=== PATIENT | female | born 1965 | race Hispanic/Latino ===

== ENCOUNTER → 2023-09-17 10:16 | Outpatient (REF) | payer BC, SELFPAY ==
[2023-09-17 11:21] LABS: % Basophils 0.7 % (0-2); % Eosinophils 1.1 % (0-6); % Immature Granulocytes 0.4 % (0-0.5); % Lymphocytes 31.5 % (20.5-51.1); % Monocytes 7.7 % (1.7-9.3); % Neutrophils 58.6 % (42.2-75.2); Absolute Basophils 0.1 10^3/uL (0-0.2); Absolute Eosinophils 0.1 10^3/uL (0-0.7); Absolute Lymphocytes 2.3 10^3/uL (1.2-3.4); Absolute Monocytes 0.6 10^3/uL (0.1-0.6); Absolute Neutrophils 4.2 10^3/uL (1.4-6.5); Hematocrit 41.5 % (37.0-47.0); Hemoglobin 14.4 g/dL (12.0-16.0); Mean Corp Hgb Conc. 34.7 g/dL (33.0-37.0); Mean Corpuscular Hgb 30.3 pg (27.0-31.0); Mean Corpuscular Volume 87.2 fL (81.0-99.0); Mean Platelet Volume 10.3 fL (7.4-10.4); Nucleated Red Blood Cells % 0 %; Platelet Count 213 10^3/uL (130-400); Red Blood Cell Count 4.76 10^6/uL (4.20-5.40); Red Cell Dist. Width 12.7 % (11.5-14.5); White Blood Cell Count 7.2 10^3/uL (4.8-10.8)
[2023-09-17 11:56] LABS: ALT (SGPT) 26 U/L (0-35); AST (SGOT) 30 U/L (14-36); Albumin 4.6 g/dl (3.5-5.0); Alkaline Phosphatase 86 U/L (38-126); Blood Urea Nitrogen 25 mg/dl (7-17); Calcium 9.7 mg/dl (8.4-10.2); Carbon Dioxide 31 mmol/L (22-30); Chloride 104 mmol/L (98-107); Glucose 103 mg/dl (70-99); HDL Cholesterol 64 mg/dl; LDL Cholesterol, Calculated 126 mg/dl; Potassium 4.9 mmol/L (3.5-5.1); Sodium 140 mmol/L (135-145); Total Bilirubin 0.6 mg/dl (0.2-1.3); Total Cholesterol 217 mg/dl (50-199); Triglyceride 138 mg/dl (10-149); Very Low Density Lipoprotein 27 mg/dl (0-30); eGFR > 60.00
[2023-09-17 14:10] LABS: TSH 1.06 uIU/ml (0.47-4.68)
== END ==
LOC: REG 10:16
PROVIDERS: ATTENDING PHYSICIAN Internal Medicine; FAMILY PHYSICIAN Internal Medicine
DX: I42.2 Other hypertrophic cardiomyopathy (principal); M54.16 Radiculopathy, lumbar region; E66.9 Obesity, unspecified; G47.33 Obstructive sleep apnea (adult) (pediatric)
CPT/HCPCS: 36415; 80053; 80061; 84443; 85025

== ENCOUNTER → 2023-09-18 14:10 | Outpatient (REF) | payer BC, SELFPAY | LOC: WDC 14:10 | PROVIDERS: ATTENDING PHYSICIAN Internal Medicine; FAMILY PHYSICIAN Internal Medicine | DX: Z12.31 Encounter for screening mammogram for malignant neoplasm of breast (principal) | CPT/HCPCS: 77063; 77067 ==

== ENCOUNTER 2024-04-12 03:23 | Inpatient (IN) | payer OTHER, SELFPAY ==
[2024-04-11 21:13] VITALS: BMI 37.8
[2024-04-11 21:19] VITALS: BP 145/79
[2024-04-11 21:26] VITALS: BP 143/72
--- NOTE | 2024-04-11 21:55 | ED.GENMED ---
History of Present Illness
General
Chief Complaint: Chest Pain
Source: patient and family
Time Seen by Provider: 04/11/24 21:45
History of Present Illness
History of Present Illness:
This patient is a 59-year-old female who states that she was eating dinner tonight and got the gradual onset of pain in both her arms radiating across the front of her chest which persists. The pain is constant without exacerbating relieving
factors with the exception of walking, which seems to make it better. It is not pleuritic. She denies associated back pain, headache, dizziness, nausea, vomiting, diaphoresis, dyspnea, fever, chills. She does note mild discomfort in the neck jaw
area. Patient has a history of hypertrophic cardiomyopathy, no known history of coronary disease. Patient denies other complaints
Past History
Past History
ED Past Medical History: GERD and Other (Hypertrophic cardiomyopathy, sleep apnea)
ED Past Surgical History: and Orthopedic (Bilateral carpal tunnel release)
Social History
Tobacco: Non-smoker
Alcohol: None
Drug: None
Personal:
Living: with family
Employment: Employed
Family History
Family History: Other (Noncontributory)
Phy Exam
Physical Exam
Physical Exam:
GENERAL: Alert , in no apparent distress
EYE: pupils equal and reactive
NECK: Supple, no significant adenopathy.
ENT: o/p clr, mmm.
CARDIAC: Regular rate and rhythm, systolic murmur noted.
LUNGS: Clear breath sounds bilaterally, no acute respiratory distress, no wheezes/rales/rhonchi
ABDOMEN: Soft, without focal tenderness, no r/g, no cvat
NEUROLOGICAL: Alert and oriented, no focal neuro deficits
SKIN: Warm and dry, skin intact.
MUSCULOSKELETAL: No edema, well perfused.
PSYCH: Normal and appropriate interaction.
Course
Orders/Labs/Results
Orders:
Orders
04/11/24 21:14
Electrocardiogram (*1) Urgent
Reason for Study: Chest Pain
EKG- Treatment ONCE
04/11/24 21:41
CBC/With Diff [Complete Blood Count/With Diff] Urgent
CMP [Comprehensive Metabolic Panel] Urgent
04/11/24 21:53
Aspirin 325 mg PO NOW STA
04/11/24 22:22
Morphine Sulfate 2 mg .ROUTE .STK-MED ONE
Morphine Sulfate 2 mg IV NOW STA
04/11/24 22:26
Troponin I Urgent
04/12/24 01:33
Troponin I Urgent
Abnormal Lab Results
04/11/24 04/12/24
21:41 01:33
Absolute Monos (auto) 0.7 H 10^3/uL
(0.1-0.6)
BUN 26 H mg/dl
(7-17)
Creatinine 1.1 H mg/dL
(0.6-1.0)
Glucose 101 H mg/dl
(70-99)
Troponin I 0.095 H* D ng/ml
04/11/24 21:41
04/11/24 21:41
Vital Signs
Initial and Last Documented VS:
Initial Vital Signs
Temp Pulse Resp BP Pulse Ox
97.6 F 109 16 145/79 98
04/11/24 21:19 04/11/24 21:19 04/11/24 21:19 04/11/24 21:19 04/11/24 21:19
Last Documented Vital Signs
Temp Pulse Resp BP Pulse Ox
97.6 F 66 17 93/57 96
04/11/24 21:19 04/12/24 01:30 04/12/24 01:30 04/12/24 01:00 04/12/24 01:30
Update Note
Update Note:
Patient presents to the Emergency Department with ____chest and arm pain
Number and Complexity of Problems Addressed at the Encounter
� Chronic conditions affecting care:
� Acute Exacerbation and/or Progression of Chronic Illness:
� Differential Diagnosis includes: But not limited to ACS, pleurisy, anxiety, musculoskeletal, etc. etc.
Amount and/or Complexity of Data to be Reviewed and Analyzed
� I performed an independent evaluation of and my interpretation is:
EKG:read by me, sinus tachycardia, lvh, lae, st depr (mild)
CT:
Xrays:
Laboratory Studies:mild renal insufficiency, trop initial nl
Other:
� Review of other/old records reveals: Prior admissions to the hospital for colitis. She also had a recorder placed. Echo from August 2020 shows LVH with EF of 70%
� Clinical information was obtained by an independent historian:
� Prescriptions/Medications Considered but not given:
� Further testing considered but not performed:
Risk of Complications and/or Morbidity or Mortality of Patient Management
� Social determinants of health affecting care:
� Discussion with other providers (PCP, Hospitalists, Consultants, etc):
� Escalation of care including admission/observation vs risk of discharge considered:1140 pm Pt resting comfortably, pain free. Pt updated regarding plan, repeat trop. No complnts.
220 AM Repeat troponin with abnormal elevation. pt pain free/sleeping. will admit. Already received asa, will add heparin gtt and d/w dr Bryant.
Of note, pain not persistent, sudden, ripping/tearing, radiating to back etc to suggest dissection
ED Attending Note
-
Portions of this chart may have been created with voice recognition software.� Occasional wrong word or��sound alike� substitutions may have occurred due to the inherent limitations of voice recognition software.
Discharge Plan
Departure
Patient Disposition: Admit
Date of Disposition: 04/12/24
Time of Disposition: 02:
Admit to doctor: neda
Presentation/result/management discussed w/ accepting MD/DO: Hospitalist
Condition: Good
Discharge Problem:
Chest pain
Prescriptions:
No Action
Ozempic 2 mg/dose (8 mg/3 mL) Pen Injector
2 mg SC OWUSU
lidocaine 5 % adhesive patch,medicated
1 patch topical DAILY
diltiazem HCl 180 mg capsule,extended release 24hr
180 mg PO DAILY
pantoprazole 40 mg Tablet,Delayed Release (Dr/Ec)
40 mg PO BID Qty: 60 0RF
sucralfate 100 mg/mL Suspension
1 g PO ACHS Qty: 200 0RF
amoxicillin-pot clavulanate 500-125 mg tablet
1 tab PO Q12H Qty: 10 0RF
Referrals:
Mike Nguyen MD [Family Provider] -
Interventions
Interventions:
*Risk Screen - Suicide Last Done: 04/11/24 21:19
*General Assessment Last Done: 04/11/24 21:19
*Neglect/Abuse Screening Last Done: 04/11/24 21:19
ED- Fall Risk Assessment Last Done: 04/11/24 22:18
ED- Cardiac Assessment Last Done: 04/11/24 22:18
Discharge Date and Time
Print Language: WELSH
[2024-04-11 21:58] LABS: % Basophils 0.4 % (0-2); % Immature Granulocytes 0.4 % (0-0.5); % Lymphocytes 33.6 % (20.5-51.1); % Monocytes 8.8 % (1.7-9.3); % Neutrophils 55.8 % (42.2-75.2); Absolute Eosinophils 0.1 10^3/uL (0-0.7); Absolute Lymphocytes 2.6 10^3/uL (1.2-3.4); Absolute Monocytes 0.7 10^3/uL (0.1-0.6); Absolute Neutrophils 4.3 10^3/uL (1.4-6.5); Hematocrit 40.3 % (37.0-47.0); Hemoglobin 13.8 g/dL (12.0-16.0); Mean Corp Hgb Conc. 34.2 g/dL (33.0-37.0); Mean Corpuscular Hgb 30.3 pg (27.0-31.0); Mean Corpuscular Volume 88.6 fL (81.0-99.0); Mean Platelet Volume 10.1 fL (7.4-10.4); Nucleated Red Blood Cells % 0 %; Platelet Count 191 10^3/uL (130-400); Red Blood Cell Count 4.55 10^6/uL (4.20-5.40); Red Cell Dist. Width 12.3 % (11.5-14.5); White Blood Cell Count 7.8 10^3/uL (4.8-10.8)
[2024-04-11 22:00] VITALS: BP 138/70
[2024-04-11] MEDS: ASPIRIN 325 MG PO (22:03)
[2024-04-11 22:12] LABS: ALT (SGPT) 24 U/L (0-35); AST (SGOT) 28 U/L (14-36); Alkaline Phosphatase 77 U/L (38-126); Blood Urea Nitrogen 26 mg/dl (7-17); Carbon Dioxide 28 mmol/L (22-30); Chloride 104 mmol/L (98-107); Estimated Creatinine Clearance 56 ml/min; Glucose 101 mg/dl (70-99); Potassium 4.2 mmol/L (3.5-5.1); Sodium 137 mmol/L (135-145); Total Bilirubin 0.7 mg/dl (0.2-1.3); Total Protein 6.5 g/dl (6.3-8.2); eGFR 57.52
[2024-04-11] MEDS: MORPHINE SULFATE 2 MG IV (22:22)
[2024-04-11 22:56] LABS: Troponin I < 0.012 ng/ml
[2024-04-11 23:00] VITALS: BP 110/60
[2024-04-12] VITALS (9 sets, daily range): BP systolic 93–137; BP diastolic 57–81; BMI 36.6
[2024-04-12 02:17] LABS: Troponin I 0.095 ng/ml
[2024-04-12] MEDS: HEPARIN 4000 UNITS IV (02:49)
[2024-04-12] MEDS: HEPARIN 25000 UNITS/250 ML IV (02:50)
[2024-04-12 02:55] LABS: APTT 30.5 Sec (23.4-35.0)
--- NOTE | 2024-04-12 03:16 | HPS.HSE ---
Family Physician
-
Family Physician: Mike Nguyen
Chief Complaint
-
Chest pain
History of Present Illness
Patient is a 59y F with PMH significant for HOCM, hypertension and obesity who presents to ED complaining of chest pain. Patient states that she developed symptoms this evening around 6 PM. She describes heaviness and tightness in both arms,
across the upper chest and into her neck and upper back. She denies any associated N/V, SOB, etc. Patient went to lie down, but her symptoms only increased in intensity. Around 9:30 PM she presented to the ED for further evaluation.
In the ED she received morphine and her symptoms improved.
Patient states that she is currently pain free. Patient denies any similar episodes in the past.
She does report recent episodes of chest heaviness which she notes occurs on days when she fails to take her diltiazem. This has been ongoing since January.
Patient is followed at [facility] by Dr. Turner for hypertrophic cardiomyopathy.
Medical History
Past Medical History
Past Medical History: Reports Other
Additional Past Medical History:
Hypertrophic Cardiomyopathy
Hypertension
Obesity
AMBER
Cervical DDD
Past Surgical History: Reports Other
Additional Past Surgical History:
Cervical Surgery
Right ACL Repair
LINQ
Social History
Tobacco: Non-smoker
Alcohol: None
Drug: None
Family History
Family History: Not pertinent
Allergies / Home Medications
Allergies reflects when Allergies were last updated in [employer].
Home Medications with original date entered in [employer]
Allergy/Medication List:
Allergies
Allergy/AdvReac Type Severity Reaction Status Date / Time
No Known Allergies Allergy Verified 09/06/22 19:21
Home Medications
diltiazem HCl 180 mg capsule,extended release 24 hr 120 mg PO DAILY Blood Pressure 09/07/22
meloxicam 15 mg tablet 15 mg PO DAILY 04/12/24
Review of Systems
-
History Source: Patient
A 12 point ROS was completed and negative except as noted: Yes
Constitutional: Denies Fever or Chills
EENT: Denies Sore Throat
Respiratory: Denies Cough or Trouble Breathing
Cardiac: Reports Chest Pain; Denies Diaphoresis, Palpitations or Syncope
Abdomen/GI: Denies Abdominal Pain, Nausea, Vomiting or Diarrhea
: Denies Dysuria, Frequency or Flank Pain
Musculoskeletal: Denies Joint Pain or Edema
Neurological: Denies Dizzy or Headache
Psych: Reports Anxiety; Denies Depression
Physical Exam
Vital Signs
Vital Signs
Temp Pulse Resp BP Pulse Ox
97.6 F 70 13 114/62 98
04/11/24 21:19 04/12/24 03:00 04/12/24 03:00 04/12/24 02:23 04/12/24 02:30
Physical Exam
General: Other (59y F in no acute distress.)
HEENT: Moist mucous membranes and PERRLA
Respiratory: Clear; No Wheezes, Rales or Rhonchi
Cardiac: S1/S2, Regular Rhythm and Murmur (II/ SJ)
GI: Soft, Non Tender, Non Distended and Normal Bowel Sounds
Musculoskeletal: No Clubbing, No Cyanosis and No Edema
Neuro: AO x 3
Laboratory Results
-
04/11/24 21:41
04/11/24 21:41
Laboratory Results
APTT 30.5 Sec (23.4-35.0) 04/12/24 02:23
Total Bilirubin 0.7 mg/dl (0.2-1.3) 04/11/24 21:41
AST 28 U/L (14-36) 04/11/24 21:41
ALT 24 U/L (0-35) 04/11/24 21:41
Alkaline Phosphatase 77 U/L (38-126) 04/11/24 21:41
Troponin I 0.095 ng/ml H* D 04/12/24 01:33
Impression/Plan
-
A/P: Patient is a 59y F with PMH significant for HOCM, hypertension and obesity who presents to ED complaining of chest pain.
NSTEMI
Hypertrophic Cardiomyopathy
- Admit to IVU for further evaluation and treatment.
- Patient presents with chest pain, troponin elevated on second set (undetectable to 0.095) and abnormal EKG.
- Nonspecific ST-T changes inferiorly and T inversions / minimal ST depressions V4-V6. Both new compared to prior tracings.
- Currently pain-free in the ED.
- IV heparin, daily ASA.
- Follow troponin to peak. Monitor for any new / recurrent chest discomfort.
- Cardiology evaluation for additional recommendations / possible ischemic evaluation.
- Update Echo given HOCM.
- Continue diltiazem.
Obesity due to excess calories
AMBER not on CPAP
- Affects all aspects of care including CV risks.
- Encourage healthy diet and increased activity with goal of weight loss.
- Would encourage PAP usage - would likely need updated PSG / Pulm follow-up to arrange.
DVT Prophylaxis: On IV Heparin
Code Status: Full
[2024-04-12] MEDS: TYLENOL 650 MG PO ×4 (05:46→22:08)
--- NOTE | 2024-04-12 05:50 | PTCARENOTE ---
Pt received as admit from ED. Pt placed on tele monitor reading SR in 60s-70s. Heparin gtt currently infusing at 1000units/hr, no complaints of chest or arm pain. Pt does have complaints of slight headache, Tylenol administered per orders, see
MAR. Admission assessment completed and pt oriented to room. Ambulating independently in room without difficulty. Can make needs known. Call barnes within reach.
[2024-04-12 05:53] LABS: Mean Corp Hgb Conc. 35.9 g/dL (33.0-37.0); Mean Corpuscular Hgb 31.2 pg (27.0-31.0); Mean Corpuscular Volume 86.9 fL (81.0-99.0); Mean Platelet Volume 10.4 fL (7.4-10.4); Platelet Count 187 10^3/uL (130-400); Red Blood Cell Count 4.49 10^6/uL (4.20-5.40); Red Cell Dist. Width 12.2 % (11.5-14.5); White Blood Cell Count 6.9 10^3/uL (4.8-10.8)
[2024-04-12 06:10] LABS: Troponin I 0.191 ng/ml
[2024-04-12 06:29] LABS: Blood Urea Nitrogen 26 mg/dl (7-17); Calcium 8.9 mg/dl (8.4-10.2); Carbon Dioxide 24 mmol/L (22-30); Chloride 104 mmol/L (98-107); Estimated Creatinine Clearance 86 ml/min; Glucose 96 mg/dl (70-99); HDL Cholesterol 56 mg/dl; Potassium 4.3 mmol/L (3.5-5.1); Sodium 136 mmol/L (135-145); Total Cholesterol 210 mg/dl (50-199); eGFR > 60.00
[2024-04-12 06:36] LABS: LDL Cholesterol, Calculated 143 mg/dl; Triglyceride 55 mg/dl (10-149); Very Low Density Lipoprotein 11 mg/dl (0-30)
--- NOTE | 2024-04-12 07:42 | W.PN.HOSP.TC ---
Today's Communication/Plan
-
F/U further cardiology recommendations
Assessment / Plan
Assessment / Plan
Patient is a 59y F with PMH significant for HOCM, hypertension and obesity who presents to ED complaining of chest pain, admitted for NSTEMI.
NSTEMI
Hypertrophic Cardiomyopathy
- Admitted to IVU for further evaluation and treatment.
- Patient presents with chest pain, troponin elevated on second set and abnormal EKG.
- Nonspecific ST-T changes inferiorly and T inversions / minimal ST depressions V4-V6. Both new compared to prior tracings.
- Currently pain-free
- IV heparin, daily ASA.
- Follow troponin to peak. Monitor for any new / recurrent chest discomfort.
- Cardiology evaluation for additional recommendations / possible ischemic evaluation.
- Update Echo
- Continue diltiazem.
Obesity due to excess calories
AMBER not on CPAP
- Affects all aspects of care including CV risks.
- Encourage healthy diet and increased activity with goal of weight loss.
- Would encourage PAP usage - would likely need updated PSG / Pulm follow-up to arrange.
DVT Prophylaxis: On IV Heparin
Code Status: Full
Anticipated Discharge: 24 - 48 hours
Subjective/Interval History
-
Date of Service: April 12, 2024
no current chest pain
awoken from sleep
Objective Data
-
Labs:
Laboratory Results
04/11/24 04/12/24 04/12/24
21:41 02:23 05:35
WBC 7.8 6.9
Hgb 13.8 14.0
Hct 40.3 39.0
Plt Count 191 187
APTT 30.5
Sodium 137
Potassium 4.2
Chloride 104
Carbon Dioxide 28
BUN 26 H
Creatinine 1.1 H
Glucose 101 H
Calcium 9.0
Total Bilirubin 0.7
AST 28
ALT 24
Alkaline Phosphatase 77
04/12/24 04/12/24
05:36 09:00
WBC
Hgb
Hct
Plt Count
APTT Pending
Sodium 136
Potassium 4.3
Chloride 104
Carbon Dioxide 24
BUN 26 H
Creatinine 0.7
Glucose 96
Calcium 8.9
Total Bilirubin
AST
ALT
Alkaline Phosphatase
Vital Signs:
Vital Signs
Temp Pulse Resp BP Pulse Ox
97.9 F 68 16 137/72 98
04/12/24 05:29 04/12/24 05:12 04/12/24 05:29 04/12/24 05:12 04/12/24 05:29
Review of Systems
-
History Source: Patient
All other systems: Reviewed and negative
Physical Exam
-
General: Well Developed, Well Nourished and No Apparent Distress
HEENT: Normocephalic and Atraumatic
Respiratory: Clear to Auscultation; Negative Wheezes or Rhonchi
Cardiac: Regular Rhythm and S1/S2; Negative Murmur
GI: Soft, Nontender, Nondistended and Normal Bowel Sounds
Musculoskeletal: No Clubbing, No Cyanosis and No Edema
Neuro: Awake and Alert
Psych: Calm
Data Reviewed
-
Diagnostic Radiology: Report Reviewed by me
Labs: Labs Reviewed by me
--- NOTE | 2024-04-12 07:43 | CON.CAR ---
Addendum entered and electronically signed by Damien Danielle MD 04/12/24 14:39:
I saw and examined the patient.
The GAMING WORKER's note was reviewed and I agree with the note.
Comment: 59-year-old female (formerly followed by Dr. Dorantes, now following with Dr. Turner), with hypertrophic cardiomyopathy, syncope, prediabetes, AMBER, and obesity who presented to the emergency department with a chief complaint of chest pain.
It is concerning for NSTEMI
- heparin gtt
- aspirin update echo start statin
- cath sunday
Original Note:
Consultation
Consultation Request
Date/Time Consultation Requested: 04/12/2024 05:15
Date/Time Consultation Performed: 04/12/2024 07:45
Requesting Provider: Dr. Bryant
Performing Provider: ULI Beltre for Dr. Danielle
Reason for Consultation: NSTEMI
Medical History
-
Chief Complaint: Chest pain
History of Present Illness:
Antionette Ayala is a 59-year-old female (formerly followed by Dr. Dorantes, now following with Dr. Turner), with hypertrophic cardiomyopathy, syncope, prediabetes, AMBER, and obesity who presented to the emergency department with a chief complaint of chest
pain. It started at approximately 18:00 on 04/11/2024 while she was eating dinner. She received relief when she received intravenous morphine when she presented to the emergency department. She reports her chest discomfort was just mild but her
bilateral arm pain that radiated into her neck bothered her more than the chest pain. She endorsed associated back discomfort. She reports feeling very sweaty and weak. No nausea nor vomiting.
Past Medical History
Past Medical History: CHF (HCM), GERD and Other (prediabetes)
Past Surgical History: and Orthopedic
Allergies / Home Medications
Allergy/AdvReac Type Severity Reaction Status Date / Time
No Known Allergies Allergy Verified 09/06/22 19:21
�Medication �Instructions �Recorded �Confirmed �Type
diltiazem HCl 180 mg 120 mg PO DAILY Blood Pressure 09/07/22 04/12/24 History
capsule,extended release 24 hr
meloxicam 15 mg tablet 15 mg PO DAILY 04/12/24 04/12/24 History
Review of Systems
-
History Source: Patient
All other systems: Negative unless noted
Constitutional: No Symptoms
EENT: No Symptoms
Respiratory: No Symptoms
Cardiac: No Symptoms
Abdomen/GI: No Symptoms
: No Symptoms
Musculoskeletal: No Symptoms
Skin: No Symptoms
Neurological: No Symptoms
Endocrine: No Symptoms
Hematologic/Lymphatic: No Symptoms
Physical Exam
Vital Signs
Temp Pulse Resp BP Pulse Ox
97.9 F 68 16 137/72 98
04/12/24 05:29 04/12/24 05:12 04/12/24 05:29 04/12/24 05:12 04/12/24 05:29
Lab Results
04/12/24 05:35
04/12/24 05:36
Troponin I 0.191 ng/ml H* D 04/12/24 05:35
Physical Exam
General: Well Developed, Well Nourished, No Apparent Distress and Comfortable
HEENT: Normocephalic, Anicteric and Moist Mucous Membranes
Respiratory: Clear and Non Labored Respirations
Cardiac: S1/S2, Regular Rhythm and Murmur (midsystolic resend no decrescendo murmur LLSB)
Breast: Deferred by me
GI: Soft, Non Tender, Non Distended and Normal Bowel Sounds
Rectal: Deferred by Provider
Genito-urinary: No Costovertebral Tender
Musculoskeletal: No Clubbing, No Cyanosis and No Edema
Skin: Warm and Dry
Neuro: AO x 3
Hematologic/Lymphatic: No Lymphadenopathy
Psych: Calm
Impression / Plan
-
IMPRESSION/PLAN: 59F with hypertrophic cardiomyopathy, syncope, prediabetes, AMBER, and obesity who presented to the emergency department with a chief complaint of chest pain.
Primary manager occupational: Dr. Turner ([facility])
NSTEMI
-Trend troponin to peak,currently 0.191
-Inferior T wave abnormality on EKG, challenging interpretation given LVH
-Continue heparin drip and aspirin 81 mg
-Update echocardiogram
-Start statin (LDL 143), Hgb A1c pending
-Cardiac catheterization on Sunday if she remains chest pain-free
Hypertrophic cardiomyopathy
-44 gene HCM was negative
-Maintain euvolemia
-Records have been requested by her primary manager occupational
Mixed hyperlipidemia
-TC 210, LDL 143, HDL 56, TG 55
-Start rosuvastatin 20 mg
Prior syncope syncope with ILR placement, followed in our outpatient device clinic, interrogations remained stable
AMBER, declined CPAP, encouraged use
Prediabetes, HgbA1c pending
Obesity, BMI 36, she would benefit from weight loss
SUBJECTIVE:
As above. Records requested.
DATA:
Cardiac MRI, 11/12/2020:
1. ASYMMETRIC HYPERTROPHIC CARDIOMYOPATHY involving the LEFT MID VENTRICULAR SEPTUM.
Mild amount of myocardial enhancement in the left mid ventricular septum consistent with mild fibrosis.
2. No definitive MRI evidence for left ventricular outflow tract obstruction.
3. Global systolic LV function: Normal.
4. Global systolic RV function: Normal.
5. Valvular disease: None.
Data Reviewed
-
EKG: Report Reviewed by me (Sinus tachycardia, lateral T wave abnormality, rate 106)
MRI: Report Reviewed by me
Medical Tests (Nuc Med, Echo etc): Report Reviewed by me
Labs: Labs Reviewed by me
Old Records: Requested and Reviewed
[2024-04-12] MEDS: CARDIZEM CD 120 MG PO (08:39)
[2024-04-12] MEDS: LOW STRENGTH ASPIRIN 81 MG PO (08:39)
[2024-04-12 08:59] LABS: Glycohemoglobin (HgbA1c) 5.6 % (4.0-5.6)
[2024-04-12 12:04] LABS: APTT 79.2 Sec (23.4-35.0)
[2024-04-12 12:17] LABS: Troponin I 0.117 ng/ml
[2024-04-12] MEDS: CRESTOR 20 MG PO (17:53)
[2024-04-12 18:02] LABS: APTT 83.6 Sec (23.4-35.0)
[2024-04-12] MEDS: DESYREL 12.5 MG PO (22:08)
[2024-04-13] VITALS (7 sets, daily range): BP systolic 108–131; BP diastolic 58–84; BMI 36.0
--- NOTE | 2024-04-13 02:35 | PTCARENOTE ---
Pt remains NSR with HR 70s-80s. Heparin gtt currently infusing at 1000units/hr, pt with no complaints of CP. Tylenol administered for mild headache pain, see MAR. Plan of care discussed and pt verbalizes understanding. Call barnes within reach.
[2024-04-13] MEDS: HEPARIN 25000 UNITS/250 ML IV (04:19)
[2024-04-13 05:36] LABS: APTT 104.2 Sec (23.4-35.0)
[2024-04-13 05:53] LABS: Blood Urea Nitrogen 27 mg/dl (7-17); Calcium 9.1 mg/dl (8.4-10.2); Carbon Dioxide 23 mmol/L (22-30); Chloride 104 mmol/L (98-107); Estimated Creatinine Clearance 99 ml/min; Glucose 95 mg/dl (70-99); Potassium 3.9 mmol/L (3.5-5.1); Sodium 135 mmol/L (135-145); eGFR > 60.00
--- NOTE | 2024-04-13 07:45 | W.PN.HOSP.TC ---
Today's Communication/Plan
-
NPO after MN for cardiac cath
Assessment / Plan
Assessment / Plan
Ms. Antionette Ayala is a 59y F with PMH significant for HOCM, hypertension, AMBER (doesn't use CPAP), and obesity who presents to ED complaining of chest pain, admitted for NSTEMI.
NSTEMI
Hypertrophic Cardiomyopathy
- Admitted to IVU
- Patient presents with chest pain, troponin elevated on second set and abnormal EKG.
- Nonspecific ST-T changes inferiorly and T inversions / minimal ST depressions V4-V6. Both new compared to prior tracings.
- Currently pain-free
- Troponin peaked at 0.191
- IV heparin gtt
- Asa 81mg PO QD - new start
- TTE
- NPO after MN for cardiac cath tomorrow
- Continue diltiazem.
Obesity due to excess calories
AMBER not on CPAP
- Encourage healthy diet and increased activity with goal of weight loss - dietary consult placed
- Would encourage PAP usage - would likely need updated PSG / Pulm follow-up to arrange.
DVT Prophylaxis: On IV Heparin
Code Status: Full
Anticipated Discharge: 24 - 48 hours
Subjective/Interval History
-
Date of Service: April 13, 2024
left-sided lateral discomfort worse with palpation, different than pain that patient presented with to hospital
Objective Data
-
Labs:
Laboratory Results
04/13/24 04/13/24
04:37 07:28
WBC Pending
Hgb Pending
Hct Pending
Plt Count Pending
APTT 104.2 H
Sodium 135
Potassium 3.9
Chloride 104
Carbon Dioxide 23
BUN 27 H
Creatinine 0.6
Glucose 95
Calcium 9.1
Vital Signs:
Vital Signs
Temp Pulse Resp BP Pulse Ox
97.6 F 68 18 108/58 98
04/13/24 04:22 04/13/24 04:21 04/13/24 04:22 04/13/24 04:21 04/13/24 04:22
Review of Systems
-
History Source: Patient
All other systems: Reviewed and negative
Physical Exam
-
General: Well Developed, Well Nourished and No Apparent Distress
HEENT: Normocephalic and Atraumatic
Respiratory: Clear to Auscultation and Other (along left chest bra line patient with some tenderness to palpation ); Negative Wheezes or Rhonchi
Cardiac: Regular Rhythm and S1/S2; Negative Murmur
GI: Soft, Nontender, Nondistended and Normal Bowel Sounds
Musculoskeletal: No Clubbing, No Cyanosis and No Edema
Neuro: Awake and Alert
Psych: Calm
Data Reviewed
-
Diagnostic Radiology: Report Reviewed by me
Labs: Labs Reviewed by me
[2024-04-13] MEDS: LOW STRENGTH ASPIRIN 81 MG PO (08:02)
[2024-04-13] MEDS: CARDIZEM CD 120 MG PO (08:02)
[2024-04-13 09:31] LABS: Hematocrit 42.2 % (37.0-47.0); Hemoglobin 14.9 g/dL (12.0-16.0); Mean Corp Hgb Conc. 35.3 g/dL (33.0-37.0); Mean Corpuscular Hgb 30.5 pg (27.0-31.0); Mean Corpuscular Volume 86.5 fL (81.0-99.0); Platelet Count 201 10^3/uL (130-400); Red Blood Cell Count 4.88 10^6/uL (4.20-5.40); Red Cell Dist. Width 12.2 % (11.5-14.5); White Blood Cell Count 6.4 10^3/uL (4.8-10.8)
--- NOTE | 2024-04-13 10:03 | W.PN.CD ---
Today's Communication / Plan
-
Cont heparin gtt plan for cath Sunday
Impression / Plan
-
IMPRESSION/PLAN: 59F with hypertrophic cardiomyopathy, syncope, prediabetes, AMBER, and obesity who presented to the emergency department with a chief complaint of chest pain.
Primary cab station attendant: Dr. Turner ([facility])
NSTEMI
- troponin peak 0.191
-Inferior T wave abnormality on EKG, challenging interpretation given LVH
-Continue heparin drip and aspirin 81 mg
-Update echocardiogram
-Start statin (LDL 143), Hgb A1c pending
-Cardiac catheterization on Sunday if she remains chest pain-free
Hypertrophic cardiomyopathy
-44 gene HCM was negative
-Maintain euvolemia
-Records have been requested by her primary cab station attendant
Mixed hyperlipidemia
-TC 210, LDL 143, HDL 56, TG 55
-Start rosuvastatin 20 mg
Prior syncope syncope with ILR placement, followed in our outpatient device clinic, interrogations remained stable
AMBER, declined CPAP, encouraged use
Prediabetes, HgbA1c pending
Obesity, BMI 36, she would benefit from weight loss
SUBJECTIVE:
No CP feeling well
DATA:
Cardiac MRI, 11/12/2020:
1. ASYMMETRIC HYPERTROPHIC CARDIOMYOPATHY involving the LEFT MID VENTRICULAR SEPTUM.
Mild amount of myocardial enhancement in the left mid ventricular septum consistent with mild fibrosis.
2. No definitive MRI evidence for left ventricular outflow tract obstruction.
3. Global systolic LV function: Normal.
4. Global systolic RV function: Normal.
5. Valvular disease: None.
Physical Exam
Vital Signs/Labs
Vital Signs
Temp Pulse Resp BP Pulse Ox
97.3 F 67 20 128/84 97
04/13/24 08:19 04/13/24 08:02 04/13/24 08:19 04/13/24 08:02 04/13/24 08:19
04/12/24 04/13/24 04/14/24
06:59 06:59 06:59
Actual Weight 193 lb 12.581 oz 190 lb 4.143 oz
04/13/24 09:25
04/13/24 04:37
APTT 104.2 Sec (23.4-35.0) H 04/13/24 04:37
Triglycerides 55 mg/dl (10-149) 04/12/24 05:36
LDL Cholesterol, Calc 143 mg/dl 04/12/24 05:36
VLDL Cholesterol, Calc 11 mg/dl (0-30) 04/12/24 05:36
HDL Cholesterol 56 mg/dl 04/12/24 05:36
LAB Results
04/11/24 04/12/24 04/12/24
22:26 01:33 05:35
Troponin I < 0.012 0.095 H* D 0.191 H* D
04/12/24 04/12/24 04/12/24
11:38 17:41 18:21
Troponin I 0.117 H* D Cancelled Cancelled
Physical Exam
Constitutional: No acute distress
EENT: Anicteric
Cardiovascular: Rhythm & rate is regular and Pedal edema is absent
Respiratory: Respiratory effort normal and Lungs clear to auscul.
GI: Soft
Neuro/Psych: AO x 3
Data Reviewed
-
Date of Service: April 13, 2024
EKG: Tracing Personally Visualized and interpreted (sr)
X-Ray/CT/US/MRI/NUC/PET: Report Reviewed by me
Labs: Labs Reviewed by me
--- NOTE | 2024-04-13 15:37 | PTCARENOTE ---
Pt is AOx3, no complaints of pain or discomfort. SR on tele monitor, VSS. Heparin gtt infusing per protocol. Independent OOB. Call barnes within reach.
[2024-04-13] MEDS: CRESTOR 20 MG PO (17:28)
[2024-04-13] MEDS: DESYREL 12.5 MG PO (22:30)
[2024-04-14] VITALS (11 sets, daily range): BP systolic 108–135; BP diastolic 69–92; BMI 35.7
--- NOTE | 2024-04-14 05:02 | PTCARENOTE ---
Received pt at shift change. NSR on tele, HR 60s-70s. No complaints of CP or SOB. Heparin gtt infusing at 1000units/hr. Plan of care discussed and pt verbalizes understanding. NPO since midnight for cardiac cath.
[2024-04-14 05:39] LABS: Hematocrit 40.7 % (37.0-47.0); Hemoglobin 13.9 g/dL (12.0-16.0); Mean Corp Hgb Conc. 34.2 g/dL (33.0-37.0); Mean Corpuscular Hgb 30.4 pg (27.0-31.0); Mean Corpuscular Volume 89.1 fL (81.0-99.0); Mean Platelet Volume 10.5 fL (7.4-10.4); Platelet Count 170 10^3/uL (130-400); Red Blood Cell Count 4.57 10^6/uL (4.20-5.40); Red Cell Dist. Width 12.2 % (11.5-14.5); White Blood Cell Count 5.9 10^3/uL (4.8-10.8)
[2024-04-14 05:41] LABS: APTT 111.1 Sec (23.4-35.0)
[2024-04-14] MEDS: HEPARIN 25000 UNITS/250 ML IV (05:52)
[2024-04-14 06:06] LABS: Blood Urea Nitrogen 24 mg/dl (7-17); Calcium 9.6 mg/dl (8.4-10.2); Carbon Dioxide 26 mmol/L (22-30); Chloride 105 mmol/L (98-107); Estimated Creatinine Clearance 85 ml/min; Glucose 102 mg/dl (70-99); Magnesium 2.2 mg/dl (1.6-2.3); Potassium 4.1 mmol/L (3.5-5.1); Sodium 137 mmol/L (135-145); eGFR > 60.00
[2024-04-14] MEDS: CARDIZEM CD 120 MG PO (08:14)
[2024-04-14] MEDS: LOW STRENGTH ASPIRIN 81 MG PO (08:14)
[2024-04-14] MEDS: LOW STRENGTH ASPIRIN 243 MG PO (08:14)
--- NOTE | 2024-04-14 08:26 | W.PN.HOSP.TC ---
Today's Communication/Plan
-
Heparin Drip
Cardiac cath for today
Assessment / Plan
Assessment / Plan
Physical Exam
General: Well Developed, Well Nourished and No Apparent Distress
HEENT: Normocephalic and Atraumatic
Respiratory: Clear to Auscultation and Other (along left chest bra line patient with some tenderness to palpation ); Negative Wheezes or Rhonchi
Cardiac: Regular Rhythm and S1/S2; Negative Murmur
GI: Soft, Nontender, Nondistended and Normal Bowel Sounds
Musculoskeletal: No Clubbing, No Cyanosis and No Edema
Neuro: Awake and Alert
Psych: Calm
Assessment/Plan
Ms. Antionette Ayala is a 59y F with PMH significant for HOCM, hypertension, AMBER (doesn't use CPAP), and obesity who presents to ED complaining of chest pain, admitted for NSTEMI.
NSTEMI
Hypertrophic Cardiomyopathy
- Continue to monitor in IVU
- Patient presented with chest pain, troponin elevated on second set and abnormal EKG.
- Nonspecific ST-T changes inferiorly and T inversions / minimal ST depressions V4-V6. Both new compared to prior tracings.
- Currently pain-free
- Troponin peaked at 0.191
- Continue IV Heparin Drip
- Asa 81mg PO QD - new start
- TTE
- NPO for cardiac cath today
- Continue diltiazem.
Obesity due to excess calories
AMBER not on CPAP
- Encourage healthy diet and increased activity with goal of weight loss - dietary consult placed
- Would encourage PAP usage - would likely need updated PSG / Pulm follow-up to arrange.
DVT Prophylaxis: On IV Heparin
Code Status: Full
Anticipated Discharge: > 48 hours
Subjective/Interval History
-
Date of Service: April 14, 2024
Patient was seen and examined. She denied any chest pain or any other symptoms or complaints.
Objective Data
-
Labs:
Laboratory Results
04/14/24 04/14/24
05:17 12:00
WBC 5.9
Hgb 13.9
Hct 40.7
Plt Count 170
APTT 111.1 H Pending
Sodium 137
Potassium 4.1
Chloride 105
Carbon Dioxide 26
BUN 24 H
Creatinine 0.7
Glucose 102 H
Calcium 9.6
Vital Signs:
Vital Signs
Temp Pulse Resp BP Pulse Ox
97.7 F 88 17 122/76 98
04/14/24 08:12 04/14/24 08:14 04/14/24 08:12 04/14/24 08:14 04/14/24 08:12
--- NOTE | 2024-04-14 10:00 | PTCARENOTE ---
Assumed care of patient at 0645. Assessed patient and documented in shift assessment on worklist.
Patient is pleasant, AAOX4, SR on Monitor, on Heparin gtt infusing at 900 units/hour through L Wrist. Ambulating in room in no acute distress.
Awaiting cardiac cath and echocardiogram, planned for today.
[2024-04-14] MEDS: ZOFRAN 4 MG IV (14:28)
--- NOTE | 2024-04-14 14:49 | CM ---
Chart reviewed. Patient is independent of ADLS, lives with her sister in a [address], 1 RENETTA, 0 DME. Plan is for the patient to return home. CM to follow
[2024-04-14] MEDS: NSS 1000 IV (16:31)
--- NOTE | 2024-04-14 16:57 | ITS.CL.CATH ---
Corporate Physical Security Supervisor - Catheterization
Cardiac Catheterization
Procedure Report:
CARDIAC CATHETERIZATION REPORT
Date of Procedure: 04/14/2024
Referring: Damien Danielle M.D.
INDICATION: Non-ST elevation myocardial infarction.
PROCEDURE:
1. Left heart catheterization.
2. Coronary angiography.
3. Left ventriculography.
4. Pullback LV gradient using an endhole catheter.
A total of 36 minutes of procedural/moderate sedation was utilized. An independent medical registrar was present to assist with and help manage the patient's level of consciousness and physiologic status.
ACCESS:
1. 6 Malian right radial artery using a modified Seldinger technique.
CATHETERS:
1. 5 Malian JR4.
2. 5 Malian JL 3.5.
3. 5 Malian angled pigtail.
4. 5 Malian multipurpose.
HEMODYNAMIC DATA
Weight (kg): 85.3
AO (s/d/x, mmHg): 120/73/93
LVOT (s/x mmHg): 122/16 (A wave to 32)
LV mid ventricle (s/x mmHg): 155/15 (A wave to 27)
LV apex (s/X mmHg): 181/15 (A wave to 25)
LEFT VENTRICULOGRAPHY: Normal left ventricular size with hyperdynamic function. Left ventricular systolic function estimated at 75%. There is moderate mitral valve regurgitation. There is no aortic valve insufficiency. The aortic root appears
normal.
CORONARY ANGIOGRAPHY
Dominance: Right.
Left Main: Large size, bifurcating vessel. There is no coronary artery disease.
LAD: Large size vessel giving rise to 1 significant diagonal. There is no coronary artery disease. There is at least moderate tortuosity of the mid LAD. 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
tortuosity.
Ramus: Congenitally absent.
Circumflex: Large size, nondominant vessel giving rise to several small obtuse marginals then terminating as a large left posterolateral branch. There is no coronary artery disease. The left posterolateral branch is moderately tortuous.
RCA: Normal size, dominant vessel. There is no coronary artery disease. The RPDA is moderately tortuous.
INTERVENTION(S)
1. Slow pullback through the left ventricle with an endhole catheter to document sequential LV gradient.
Narrative:
During left heart catheterization, the patient was observed to have extreme left ventricular pressures using the JR4 catheter in the right ventricle. These pressures appear to normalize as the catheter approach to the LVOT and entered the aorta.
Given the patient's known hypertrophic cardiomyopathy, the decision was made to repeat the left heart catheterization after left ventriculography with a slow pullback through the ventricle using an endhole catheter. After completing a left
ventriculogram, the pigtail catheter was exchanged for a multipurpose catheter. The catheter was de-aired and zeroed. Left ventricular pressures were measured on slow pullback through the ventricle. A notable drop in pressure occurred as the
endhole catheter entered the ventricular base/LVOT. Pressure recordings were taken and are consistent with the patient's known mid cavitary hypertrophy.
Closure Device: Vascular band.
Radiation (mGy): 340.39
DAP (cm2.Gy): 29.8550
Fluoroscopy time (minutes): 5.3
CONCLUSIONS
1. Right dominant circulation with no coronary artery disease. There is moderate tortuosity of all terminal vessels consistent with HCM/hypertensive heart disease. 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
2. Top normal to mildly elevated filling pressures (LVEDP = 15-16 mmHg at 85.3 kg) with evidence of diastolic dysfunction (A wave to 25-32 mmHg).
3. Known hypertrophic cardiomyopathy with documented mid cavitary gradient observed on pullback. The systolic pressure of the left ventricular apex is 181 mmHg compared to 122 mmHg in the LVOT.
4. Moderate mitral regurgitation.
RECOMMENDATIONS:
1. Expectant management after cardiac catheterization via right radial approach.
2. Limited weight bearing on the right wrist for one week.
3. Treatment of underlying hypertrophic cardiomyopathy.
4. Increase afterload and decrease inotropy.
Copy to: Ha Carcamo M.D., Wing Dorantes M.D., Mike Nguyen M.D.
Yovani Hampton DO, FACC, FACP
[2024-04-14] MEDS: CRESTOR 20 MG PO (17:43)
[2024-04-14 19:09] LABS: Hepatitis C Antibody Negative (Negative)
[2024-04-14] MEDS: TYLENOL 650 MG PO (19:20)
[2024-04-14] MEDS: DESYREL 12.5 MG PO (21:00)
[2024-04-15] VITALS (7 sets, daily range): BP systolic 98–123; BP diastolic 47–80; BMI 35.6
[2024-04-15] MEDS: TYLENOL 650 MG PO ×2 (02:38→07:45)
[2024-04-15] MEDS: PEPCID 20 MG PO (03:09)
[2024-04-15 03:49] LABS: Hematocrit 40.6 % (37.0-47.0); Hemoglobin 14.1 g/dL (12.0-16.0); Mean Corp Hgb Conc. 34.7 g/dL (33.0-37.0); Mean Corpuscular Volume 86.4 fL (81.0-99.0); Mean Platelet Volume 10.8 fL (7.4-10.4); Platelet Count 151 10^3/uL (130-400); Red Cell Dist. Width 12.2 % (11.5-14.5); White Blood Cell Count 5.7 10^3/uL (4.8-10.8)
[2024-04-15 04:12] LABS: Blood Urea Nitrogen 25 mg/dl (7-17); Calcium 8.9 mg/dl (8.4-10.2); Carbon Dioxide 20 mmol/L (22-30); Chloride 104 mmol/L (98-107); Estimated Creatinine Clearance 85 ml/min; Glucose 113 mg/dl (70-99); Magnesium 1.9 mg/dl (1.6-2.3); Potassium 3.7 mmol/L (3.5-5.1); Sodium 135 mmol/L (135-145); eGFR > 60.00
[2024-04-15] MEDS: LOW STRENGTH ASPIRIN 81 MG PO (07:45)
[2024-04-15] MEDS: CARDIZEM CD 120 MG PO (07:45)
--- NOTE | 2024-04-15 07:57 | W.PN.CD ---
Today's Communication / Plan
-
Continue ASA
Continue Diltiazem
Omeprazole for GERD
Ultimately patient will be following up with Dr. Turner at [facility]
Impression / Plan
-
IMPRESSION/PLAN: 59F with hypertrophic cardiomyopathy, syncope, prediabetes, AMBER, and obesity who presented to the emergency department with a chief complaint of chest pain.
Primary outside installer apprentice: Dr. Turner ([facility])
NSTEMI
- troponin peak 0.191 .No CAD by cath
- Cath without evidence of LVOT gradient. intracavitary gradient noted on cath report
-Inferior T wave abnormality on EKG, challenging interpretation given LVH
-Continue aspirin 81 mg
-Continue Cardizem. Patient mostly with systolics 110 to 120 but with some BPs in th 90s including this morning. Will keep at current dose for now.
-Started statin (LDL 143), Hgb A1c pending
Hypertrophic cardiomyopathy
-44 gene HCM was negative
-Maintain euvolemia
-Dr Turner at [place] is primary outside installer apprentice. She will follow up with her in AM
GERD -patient reports having some of her reflux this morning. She sometimes takes Gaviscon and sometimes takes omeprazole.
-Will give omeprazole.
Mixed hyperlipidemia
-TC 210, LDL 143, HDL 56, TG 55
-Start rosuvastatin 20 mg
Prior syncope syncope with ILR placement, followed in our outpatient device clinic, interrogations remained stable
AMBER, declined CPAP, encouraged use
Prediabetes, HgbA1c pending
Obesity, BMI 36, she would benefit from weight loss
SUBJECTIVE:
No CP feeling well
DATA:
Cardiac MRI, 11/12/2020:
1. ASYMMETRIC HYPERTROPHIC CARDIOMYOPATHY involving the LEFT MID VENTRICULAR SEPTUM.
Mild amount of myocardial enhancement in the left mid ventricular septum consistent with mild fibrosis.
2. No definitive MRI evidence for left ventricular outflow tract obstruction.
3. Global systolic LV function: Normal.
4. Global systolic RV function: Normal.
5. Valvular disease: None.
04/12/24 - cath
. Right dominant circulation with no coronary artery disease. There is moderate tortuosity of all terminal vessels consistent with HCM/hypertensive heart disease. 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
Top normal to mildly elevated filling pressures (LVEDP = 15-16 mmHg at 85.3 kg) with evidence of diastolic dysfunction (A wave to 25-32 mmHg).
Known hypertrophic cardiomyopathy with documented mid cavitary gradient observed on pullback. The systolic pressure of the left ventricular apex is 181 mmHg compared to 122 mmHg in the LVOT.
Moderate mitral regurgitation.
Physical Exam
Vital Signs/Labs
Vital Signs
Temp Pulse Resp BP Pulse Ox
97.3 F 96 18 98/51 96
04/15/24 03:16 04/15/24 03:16 04/14/24 18:40 04/15/24 03:16 04/15/24 03:18
04/14/24 04/15/24 04/16/24
06:59 06:59 06:59
Actual Weight 85.6 kg 85.4 kg
04/15/24 03:17
04/15/24 03:17
APTT 74.0 Sec (23.4-35.0) H 04/14/24 12:34
Magnesium 1.9 mg/dl (1.6-2.3) 04/15/24 03:17
Triglycerides 55 mg/dl (10-149) 04/12/24 05:36
LDL Cholesterol, Calc 143 mg/dl 04/12/24 05:36
VLDL Cholesterol, Calc 11 mg/dl (0-30) 04/12/24 05:36
HDL Cholesterol 56 mg/dl 04/12/24 05:36
LAB Results
04/12/24 04/12/24 04/12/24
11:38 17:41 18:21
Troponin I 0.117 H* D Cancelled Cancelled
Physical Exam
Constitutional: No acute distress
Cardiovascular: Rhythm & rate is regular
Respiratory: Lungs clear to auscul.
GI: Soft and Non tender
Neuro/Psych: Alert and Oriented
Other: Skin and Other (cath site fine)
Data Reviewed
-
Date of Service: April 15, 2024
Medical Decision Making: Reviewed Test Results
Echo: Report Reviewed by me
Medical Tests (PFT, Pathology etc): Report Reviewed by me
Labs: Labs Reviewed by me
[2024-04-15] MEDS: PROTONIX 40 MG PO (10:09)
[2024-04-15] MEDS: NSS 1000 IV (10:58)
--- NOTE | 2024-04-15 11:38 | W.PN.HOSP.TC ---
Addendum entered and electronically signed by Sarmad López MD 04/15/24 14:06:
Communicated with Dr. Cr via [place] [facility], ideally would like to increase the Cardizem to 180 mg daily, had low blood pressure; patient had been taken off of beta timmy in the past. Plan is to watch patient's blood pressure going into tomorrow
and switch to 180 mg daily Cardizem Cd tomorrow.
Original Note:
Today's Communication/Plan
-
Discharge today
Assessment / Plan
Assessment / Plan
Physical Exam
General: Well Developed, Well Nourished and No Apparent Distress
HEENT: Normocephalic and Atraumatic
Respiratory: Clear to Auscultation Bilaterally
Cardiac: Regular Rhythm and S1/S2
GI: Soft, Nontender, Nondistended and Normal Bowel Sounds
Musculoskeletal: No Cyanosis and No Edema
Neuro: AAOx3. Cranial Nerves 2 through 12 intact. Strength 5/5 bilaterally. Sensation grossly intact bilaterally.
Psych: Calm
Assessment/Plan
Ms. Antionette Ayala is a 59 y/o female with past medical history significant for HOCM, hypertension, AMBER (doesn't use CPAP), and obesity who presented complaining of chest pain, and admitted for NSTEMI.
NSTEMI
Hypertrophic Cardiomyopathy
- Continue to monitor in IVU while inpatient
- Patient presented with chest pain, troponin elevated on second set and abnormal EKG.
- Nonspecific ST-T changes inferiorly and T inversions / minimal ST depressions V4-V6. Both new compared to prior tracings.
- Currently pain-free
- No CAD on cardiac cath
- Troponin peaked at 0.191
- Continue IV Heparin Drip
- Aspirin 81mg PO QD - new start - continue
- Continue Diltiazem.
Hyperlipidemia
-Start Rosuvastatin 20 mg
Prior syncope syncope with ILR placement
Prediabetes
Obesity due to excess calories
AMBER not on CPAP
- Encourage healthy diet and increased activity with goal of weight loss - dietary consult placed
- Would encourage PAP usage - would likely need updated PSG / Pulm follow-up to arrange.
DVT Prophylaxis: Lovenox subq
Code Status: Full Code
More than 30 minutes spent in discharge including
Final examination of the patient
Summarizing hospital stay
Instructions for continuing care to all relevant caregivers
Preparation of discharge records, prescriptions, and referral forms
Total time spent (in minutes): 37
Anticipated Discharge: Today
Subjective/Interval History
-
Date of Service: April 15, 2024
Patient was seen and examined. She reported mild headache, but no weakness, numbness, tingling or visual disturbance, and she is looking forward to going home today.
Objective Data
-
Labs:
Laboratory Results
04/15/24
03:17
WBC 5.7
Hgb 14.1
Hct 40.6
Plt Count 151
Sodium 135
Potassium 3.7
Chloride 104
Carbon Dioxide 20 L
BUN 25 H
Creatinine 0.7
Glucose 113 H
Calcium 8.9
Vital Signs:
Vital Signs
Temp Pulse Resp BP Pulse Ox
98.1 F 93 18 121/69 96
04/15/24 11:03 04/15/24 07:58 04/15/24 11:03 04/15/24 07:36 04/15/24 11:03
[2024-04-15] MEDS: CARDIZEM 15 MG PO ×3 (14:42→22:17)
[2024-04-15] MEDS: BENADRYL 25 MG PO (16:43)
[2024-04-15] MEDS: REGLAN 10 MG PO (16:43)
[2024-04-15] MEDS: CRESTOR 20 MG PO (17:47)
[2024-04-15] MEDS: LOVENOX 40 MG SC (17:47)
[2024-04-15] MEDS: DESYREL 12.5 MG PO (22:16)
[2024-04-16 03:34] VITALS: BP 115/64
[2024-04-16 03:35] VITALS: BP 116/54
[2024-04-16 03:52] VITALS: BMI 35.8
[2024-04-16 04:23] LABS: Hematocrit 39.4 % (37.0-47.0); Hemoglobin 13.6 g/dL (12.0-16.0); Mean Corp Hgb Conc. 34.5 g/dL (33.0-37.0); Mean Corpuscular Hgb 30.2 pg (27.0-31.0); Mean Corpuscular Volume 87.4 fL (81.0-99.0); Platelet Count 146 10^3/uL (130-400); Red Blood Cell Count 4.51 10^6/uL (4.20-5.40); Red Cell Dist. Width 12.4 % (11.5-14.5)
--- NOTE | 2024-04-16 06:20 | PTCARENOTE ---
No PAZ complaints after sleeping this shift. SR on the monitor. IV fluids completed.
[2024-04-16 08:19] VITALS: BP 116/60
[2024-04-16] MEDS: PROTONIX 40 MG PO (08:20)
[2024-04-16] MEDS: LOW STRENGTH ASPIRIN 81 MG PO (08:20)
[2024-04-16] MEDS: CARDIZEM CD 180 MG PO (08:21)
--- NOTE | 2024-04-16 09:47 | W.PN.CD ---
Today's Communication / Plan
-
diltiazem increased to 180mg daily
ambulate hallway
discharge planning
please call us with additional questions
Impression / Plan
-
IMPRESSION/PLAN: 59F with hypertrophic cardiomyopathy, syncope, prediabetes, AMBER, and obesity who presented to the emergency department with a chief complaint of chest pain.
Primary ammunition storekeeper: Dr. Turner ([facility])
Elevated troponin
-acute nonischemic myocardial injury in setting of HOCM
-diltiazem increased to 180mg daily
Hypertrophic cardiomyopathy
-44 gene HCM was negative
-Maintain euvolemia
-Dr Turner at [place] is primary ammunition storekeeper. She will follow up with her in AM
- diltiazem increased to 180mg daily
Mixed hyperlipidemia
-TC 210, LDL 143, HDL 56, TG 55
-Started rosuvastatin 20 mg
Prior syncope syncope with ILR placement, followed in our outpatient device clinic, interrogations remained stable
AMBER, declined CPAP, encouraged use
Prediabetes, HgbA1c pending
Obesity, BMI 36, she would benefit from weight loss
DATA:
Cardiac MRI, 11/12/2020:
1. ASYMMETRIC HYPERTROPHIC CARDIOMYOPATHY involving the LEFT MID VENTRICULAR SEPTUM.
Mild amount of myocardial enhancement in the left mid ventricular septum consistent with mild fibrosis.
2. No definitive MRI evidence for left ventricular outflow tract obstruction.
3. Global systolic LV function: Normal.
4. Global systolic RV function: Normal.
5. Valvular disease: None.
04/12/24 - cath
. Right dominant circulation with no coronary artery disease. There is moderate tortuosity of all terminal vessels consistent with HCM/hypertensive heart disease. 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
Top normal to mildly elevated filling pressures (LVEDP = 15-16 mmHg at 85.3 kg) with evidence of diastolic dysfunction (A wave to 25-32 mmHg).
Known hypertrophic cardiomyopathy with documented mid cavitary gradient observed on pullback. The systolic pressure of the left ventricular apex is 181 mmHg compared to 122 mmHg in the LVOT.
Moderate mitral regurgitation.
Physical Exam
Vital Signs/Labs
Vital Signs
Temp Pulse Resp BP Pulse Ox
98.0 F 81 16 116/60 97
04/16/24 08:20 04/16/24 08:19 04/16/24 08:20 04/16/24 08:19 04/16/24 08:20
04/15/24 04/16/24 04/17/24
06:59 06:59 06:59
Actual Weight 85.4 kg 86 kg
04/16/24 03:38
04/15/24 03:17
APTT 74.0 Sec (23.4-35.0) H 04/14/24 12:34
Magnesium 1.9 mg/dl (1.6-2.3) 04/15/24 03:17
Triglycerides 55 mg/dl (10-149) 04/12/24 05:36
LDL Cholesterol, Calc 143 mg/dl 04/12/24 05:36
VLDL Cholesterol, Calc 11 mg/dl (0-30) 04/12/24 05:36
HDL Cholesterol 56 mg/dl 04/12/24 05:36
Physical Exam
Constitutional: No acute distress and Comfortable
EENT: Moist mucous membranes
Cardiovascular: Rhythm & rate is regular, Pedal edema is absent, JVD pressure is normal and Systolic murmur present
Respiratory: Respiratory effort normal and Lungs clear to auscul.
Neuro/Psych: AO x 3
Data Reviewed
-
Date of Service: April 16, 2024
EKG: Other (Tele: SR 70s)
Labs: Labs Reviewed by me
[2024-04-16 12:00] VITALS: BP 113/67
--- NOTE | 2024-04-16 13:24 | W.PN.HOSP.TC ---
Today's Communication/Plan
-
Discharge today
Assessment / Plan
Assessment / Plan
Physical Exam
General: Well Developed, Well Nourished and No Apparent Distress
HEENT: Normocephalic and Atraumatic
Respiratory: Clear to Auscultation Bilaterally
Cardiac: Regular Rhythm and S1/S2
GI: Soft, Nontender, Nondistended and Normal Bowel Sounds
Musculoskeletal: No Cyanosis and No Edema
Neuro: AAOx3. Cranial Nerves 2 through 12 intact. Strength 5/5 bilaterally. Sensation grossly intact bilaterally.
Psych: Calm
Assessment/Plan
Ms. Antionette Ayala is a 59 y/o female with past medical history significant for HOCM, hypertension, AMBER (doesn't use CPAP), and obesity who presented complaining of chest pain, and admitted for NSTEMI.
NSTEMI
Hypertrophic Cardiomyopathy
- Continue to monitor in IVU while inpatient
- Patient presented with chest pain, troponin elevated on second set and abnormal EKG.
- Nonspecific ST-T changes inferiorly and T inversions / minimal ST depressions V4-V6. Both new compared to prior tracings.
- Currently pain-free
- No CAD on cardiac cath
- Troponin peaked at 0.191
- Continue IV Heparin Drip
- Aspirin 81mg PO QD - new start - continue
- Continue Diltiazem (increased to 180mg daily)
Hyperlipidemia
-Continue new medication Rosuvastatin 20 mg daily
Prior syncope syncope with ILR placement
Prediabetes
Obesity due to excess calories
AMBER not on CPAP
- Encourage healthy diet and increased activity with goal of weight loss - dietary consult placed
- Would encourage PAP usage - would likely need updated PSG / Pulm follow-up to arrange.
DVT Prophylaxis: Lovenox subq
Code Status: Full Code
More than 30 minutes spent in discharge including
Final examination of the patient
Summarizing hospital stay
Instructions for continuing care to all relevant caregivers
Preparation of discharge records, prescriptions, and referral forms
Total time spent (in minutes): 39
Anticipated Discharge: Today
Subjective/Interval History
-
Date of Service: April 16, 2024
Patient was seen and examined. She reported her headache has resolved. She said she is ready to go home today.
Objective Data
-
Labs:
Laboratory Results
04/16/24
03:38
WBC 5.0
Hgb 13.6
Hct 39.4
Plt Count 146
Vital Signs:
Vital Signs
Temp Pulse Resp BP Pulse Ox
97.9 F 77 18 113/67 99
04/16/24 11:59 04/16/24 12:00 04/16/24 11:59 04/16/24 12:00 04/16/24 11:59
I&O
04/15/24 04/16/24 04/17/24
06:59 06:59 06:59
Intake Total 2059 400 / 400
Balance 2059 400 / 400
--- NOTE | 2024-04-16 13:57 | PTOTSP ---
Received order for PT and reviewed chart. Nurse's notes state pt ambulates independently. S/w pt in her room and she stated she walked in the uriarte 3 times and has no concerns about going home today. PT will sign off.
--- NOTE | 2024-04-16 15:04 | PTCARENOTE ---
Tele and IV removed. Discharge instructions reviewed w/ pt. Verbalizes understanding. Belongings collected and sent home w/ pt. Discharged to home.
== END 2024-04-16 15:04 | disposition home or self-care (01) | DRG 281 ==
LOC: IVU 03:23
PROVIDERS: Internal Medicine Cardiovascular Disease; Nurse Practitioner; Student in an Organized Health Care Education/Training Program; ADMITTING PHYSICIAN Hospitalist; ATTENDING PHYSICIAN Hospitalist; CONSULT PHYSICIAN Internal Medicine Cardiovascular Disease; EMERGENCY PHYSICIAN Emergency Medicine; FAMILY PHYSICIAN Internal Medicine; REFERRING PHYSICIAN Internal Medicine Cardiovascular Disease
PROC: 4A023N7 Measurement of Cardiac Sampling and Pressure, Left Heart, Percutaneous Approach (ICD-10-PCS; 2024-04-14)
PROC: B2111ZZ Fluoroscopy of Multiple Coronary Arteries using Low Osmolar Contrast (ICD-10-PCS; 2024-04-14)
PROC: B2151ZZ Fluoroscopy of Left Heart using Low Osmolar Contrast (ICD-10-PCS; 2024-04-14)
DX: I21.4 Non-ST elevation (NSTEMI) myocardial infarction (principal); I42.1 Obstructive hypertrophic cardiomyopathy; Q24.5 Malformation of coronary vessels; I34.0 Nonrheumatic mitral (valve) insufficiency; R73.03 Prediabetes; K21.9 Gastro-esophageal reflux disease without esophagitis; E78.2 Mixed hyperlipidemia; G47.33 Obstructive sleep apnea (adult) (pediatric); I10 Essential (primary) hypertension; M50.30 Other cervical disc degeneration, unspecified cervical region; E66.09 Other obesity due to excess calories; Z68.36 Body mass index [BMI] 36.0-36.9, adult; Z79.899 Other long term (current) drug therapy
CPT/HCPCS: 80048; 80053; 80061; 83036; 83735; 84484; 85025; 85027; 85730; 86803; 93005; 93306; 93458; 96365; 96366; 96375; 99152; 99153; 99285; C1894; Q9967

== ENCOUNTER → 2024-07-02 13:55 | Outpatient (REF) | payer OTHER, SELFPAY | LOC: RCS 13:55 | PROVIDERS: ATTENDING PHYSICIAN Nurse Practitioner; FAMILY PHYSICIAN Internal Medicine | DX: R07.89 Other chest pain (principal) | CPT/HCPCS: 93017; 93350 ==

== ENCOUNTER → 2024-10-06 17:20 | Outpatient (REF) | payer OTHER, SELFPAY | LOC: WDC 17:20 | PROVIDERS: ATTENDING PHYSICIAN Internal Medicine | DX: Z12.31 Encounter for screening mammogram for malignant neoplasm of breast (principal) | CPT/HCPCS: 77063; 77067 ==

== ENCOUNTER → 2025-01-24 10:30 | Outpatient (REF) | payer OTHER, SELFPAY ==
[2025-01-24 11:03] LABS: Hematocrit 42.9 % (37.0-47.0); Hemoglobin 14.4 g/dL (12.0-16.0); Mean Corp Hgb Conc. 33.6 g/dL (33.0-37.0); Mean Corpuscular Volume 92.9 fL (81.0-99.0); Nucleated Red Blood Cells % 0 %; Platelet Count 201 10^3/uL (130-400); Red Cell Dist. Width 12.4 % (11.5-14.5)
[2025-01-24 11:46] LABS: Urine Character Clear (Clear)
[2025-01-24 12:03] LABS: Urine Squamous Cell 0-2 /LPF (Few)
[2025-01-24 12:04] LABS: ALT (SGPT) 61 U/L (0-35); AST (SGOT) 50 U/L (14-36); Albumin 4.5 g/dl (3.5-5.0); Alkaline Phosphatase 67 U/L (38-126); Blood Urea Nitrogen 23 mg/dl (7-17); Calcium 9.1 mg/dl (8.4-10.2); Carbon Dioxide 27 mmol/L (22-30); Chloride 104 mmol/L (98-107); Glucose 84 mg/dl (70-99); HDL Cholesterol 61 mg/dl; LDL Cholesterol, Calculated 69 mg/dl; Potassium 4.3 mmol/L (3.5-5.1); Sodium 137 mmol/L (135-145); Total Protein 7.3 g/dl (6.3-8.2); Urine White Cell None Seen /HPF (0-5); Very Low Density Lipoprotein 10 mg/dl (0-30); eGFR > 60.00
[2025-01-24 12:05] LABS: TSH 0.50 uIU/ml (0.47-4.68)
== END ==
LOC: REG 10:30
PROVIDERS: ATTENDING PHYSICIAN Internal Medicine
DX: I42.2 Other hypertrophic cardiomyopathy (principal); I25.2 Old myocardial infarction; G47.33 Obstructive sleep apnea (adult) (pediatric); K59.09 Other constipation; E66.9 Obesity, unspecified; M17.12 Unilateral primary osteoarthritis, left knee; Z00.00 Encounter for general adult medical examination without abnormal findings
CPT/HCPCS: 36415; 80053; 80061; 81003; 81015; 84443; 85025